=== PATIENT | female | born 1985 | race Two or more races ===

== ENCOUNTER → 2019-10-15 | Outpatient (CLI) | payer OTHER | END | disposition home or self-care (01) | LOC: PRENATAL 10:53 | DX: O35.3XX0 Maternal care for (suspected) damage to fetus from viral disease in mother, not applicable or unspecified (principal); O28.1 Abnormal biochemical finding on antenatal screening of mother ==

== ENCOUNTER → 2019-12-24 | Outpatient (CLI) | payer OTHER | END | disposition home or self-care (01) | LOC: PRENATAL 11:00 | DX: O26.843 Uterine size-date discrepancy, third trimester (principal); O24.410 Gestational diabetes mellitus in pregnancy, diet controlled; O34.211 Maternal care for low transverse scar from previous cesarean delivery; O28.1 Abnormal biochemical finding on antenatal screening of mother; O36.60X1 Maternal care for excessive fetal growth, unspecified trimester, fetus 1; O40 Polyhydramnios; O36.8131 Decreased fetal movements, third trimester, fetus 1; O09.93 Supervision of high risk pregnancy, unspecified, third trimester; O09.213 Supervision of pregnancy with history of pre-term labor, third trimester ==

== ENCOUNTER 2020-01-07 17:02 | Inpatient (IN) | payer OTHER ==
[~2020-01-07] VITALS: Ht 160 cm; Wt 66.7 kg
[2020-01-08] MEDS ORDERED: NIFEDIPINE ER30 M1 PO (08:17)
== END 2020-01-17 15:26 | disposition home or self-care (01) | DRG 832 ==
LOC: LDR 17:02 → OB/GYN 01-08 10:54
PROVIDERS: ADMIT Obstetrics & Gynecology
PROC: 4A1HXCZ Monitoring of Products of Conception, Cardiac Rate, External Approach (ICD-10-PCS; 2020-01-07)
PROC: B54DZZZ Ultrasonography of Bilateral Lower Extremity Veins (ICD-10-PCS; principal; 2020-01-16)
DX: O22.33 Deep phlebothrombosis in pregnancy, third trimester (principal); I82.4Z1 Acute embolism and thrombosis of unspecified deep veins of right distal lower extremity; Z3A.35 35 weeks gestation of pregnancy

== ENCOUNTER 2020-01-19 00:31 | Inpatient (IN) | payer OTHER ==
[~2020-01-19] VITALS: Ht 160 cm; Wt 3.6 kg
[~2020-01-19 00:31] MED LIST: NIFEDIPINE ER30 M1 PO
[2020-01-19] MEDS ORDERED: PRENATAL TABLE1 EAC1 PO (01:48)
[2020-01-19] MEDS ORDERED: LOVENOX80 MG/0.8 SUBCUTANEO (01:49)
[2020-01-22] MEDS ORDERED: LOVENOX80 MG/0.8 SUBCUTANEO (10:00)
[2020-01-22] MEDS ORDERED: Ferro-Plex CAPLET PO (10:01)
[2020-01-22] MEDS ORDERED: CODE1TAB37 PO (10:01)
== END 2020-01-22 12:04 | disposition home or self-care (01) | DRG 783 ==
LOC: OBS/DEL 00:31 → LDR 00:54 → OB/GYN 00:54
PROVIDERS: ADMIT Obstetrics & Gynecology; ATTEND Obstetrics & Gynecology
PROC: 0UL77ZZ Occlusion of Bilateral Fallopian Tubes, Via Natural or Artificial Opening (ICD-10-PCS; 2020-01-19)
PROC: 4A1HXCZ Monitoring of Products of Conception, Cardiac Rate, External Approach (ICD-10-PCS; 2020-01-19)
PROC: 10D00Z1 Extraction of Products of Conception, Low, Open Approach (ICD-10-PCS; principal; 2020-01-19 09:15)
DX: O87.1 Deep phlebothrombosis in the puerperium (principal); O60.14X0 Preterm labor third trimester with preterm delivery third trimester, not applicable or unspecified; I82.4Z1 Acute embolism and thrombosis of unspecified deep veins of right distal lower extremity; O99.03 Anemia complicating the puerperium; Z37.0 Single live birth; Z30.2 Encounter for sterilization; Z3A.36 36 weeks gestation of pregnancy

== ENCOUNTER 2020-02-13 08:44 | Outpatient (CLI) | payer OTHER ==
[~2020-02-13 08:44] MED LIST changes: +CODE1TAB37 PO; +Ferro-Plex CAPLET PO; +LOVENOX80 MG/0.8 SUBCUTANEO; +PRENATAL TABLE1 EAC1 PO
== END 2020-02-13 08:50 | disposition home or self-care (01) ==
LOC: LAB 08:44
PROVIDERS: ATTEND Obstetrics & Gynecology
DX: I10 Essential (primary) hypertension (principal); D50.8 Other iron deficiency anemias; D68.8 Other specified coagulation defects

== ENCOUNTER 2020-02-13 09:11 | Outpatient (CLI) | payer OTHER | END 2020-02-13 09:20 | disposition home or self-care (01) | LOC: NUCLEAR 09:11 | PROVIDERS: ATTEND Obstetrics & Gynecology | DX: I82.403 Acute embolism and thrombosis of unspecified deep veins of lower extremity, bilateral (principal) ==

== ENCOUNTER 2020-04-22 10:42 | Outpatient (CLI) | payer OTHER | END 2020-04-22 10:50 | disposition home or self-care (01) | LOC: NUCLEAR 10:42 | PROVIDERS: ATTEND Internal Medicine Hematology & Oncology | DX: I87.001 Postthrombotic syndrome without complications of right lower extremity (principal); I87.2 Venous insufficiency (chronic) (peripheral) ==

== ENCOUNTER 2021-10-05 08:59 | Emergency (ER) | payer OTHER ==
[~2021-10-05] VITALS: Ht 160 cm; Wt 49.9 kg
[2021-10-05] MEDS ORDERED: ATARAX25 MG PO (14:02)
[2021-10-05] MEDS ORDERED: MEDROLPACK PO (14:02)
== END 2021-10-05 14:21 | disposition home or self-care (01) ==
LOC: ER 08:59
DX: T78.40XA Allergy, unspecified, initial encounter (principal)

== ENCOUNTER 2023-03-15 09:41 | Day surgery (SDC) | payer OTHER ==
[~2023-03-15 09:41] MED LIST changes: +ATARAX25 MG PO; +MEDROLPACK PO
[2023-03-15] MEDS ORDERED: KETO10TA2 PO (12:52)
[2023-03-15] MEDS ORDERED: TYLENOL ARTHRI650 MG PO (12:52)
[2023-03-15] MEDS ORDERED: MIRALAX17 GM PO (12:52)
[2023-03-15] MEDS ORDERED: TRAMADOL HCL50 MG PO (12:52)
== END 2023-03-15 19:45 | disposition home or self-care (01) ==
LOC: CIR.AMB 09:41
PROVIDERS: ATTEND Surgery
DX: K42.0 Umbilical hernia with obstruction, without gangrene (principal); K43.9 Ventral hernia without obstruction or gangrene; Z20.822 Contact with and (suspected) exposure to COVID-19; Z91.040 Latex allergy status
CPT/HCPCS: 49594; C1781

== ENCOUNTER 2023-03-18 15:50 | Inpatient (IN) | payer OTHER ==
[~2023-03-18] VITALS: Ht 160 cm; Wt 54.9 kg
[~2023-03-18 15:50] MED LIST changes: +KETO10TA2 PO; +MIRALAX17 GM PO; +TRAMADOL HCL50 MG PO; +TYLENOL ARTHRI650 MG PO
== END 2023-03-21 14:56 | disposition home or self-care (01) | DRG 920 ==
LOC: ER 15:50 → MEDJ 22:42
PROVIDERS: ADMIT Specialist; ATTEND Specialist
PROC: BW21ZZZ Computerized Tomography (CT Scan) of Abdomen and Pelvis (ICD-10-PCS; principal; 2023-03-18)
DX: L76.34 Postprocedural seroma of skin and subcutaneous tissue following other procedure (principal); R65.10 Systemic inflammatory response syndrome (SIRS) of non-infectious origin without acute organ dysfunction; D72.828 Other elevated white blood cell count; K66.8 Other specified disorders of peritoneum; R50.82 Postprocedural fever; D64.89 Other specified anemias; R19.7 Diarrhea, unspecified

== ENCOUNTER 2023-03-26 17:15 | Inpatient (IN) | payer OTHER ==
[~2023-03-26] VITALS: Ht 160 cm; Wt 54.4 kg
[2023-03-26] MEDS ORDERED: FERROUS SULFAT325 MG PO (18:46)
[2023-03-26] MEDS ORDERED: MULTIPLE VITAM1 EAC2 PO (18:46)
--- NOTE | 2023-03-26 18:49 | NUR ---
PTE ALERTA Y ORIENTADA X3 PTE FUE OPERADA POR HERNIA UMBILICAL. REFIERE TENER INFECCION, ES PTE DE DR. COREY BROWN.
--- NOTE | 2023-03-26 21:33 | NUR ---
PACIENTE ADMITIDA. REALIZA ORDENES DE ADMISION
[2023-03-31] MEDS ORDERED: ACIDOPHILUS1 EAC3 PO (11:22)
[2023-03-31] MEDS ORDERED: MIRALAX17 GM PO (11:22)
[2023-03-31] MEDS ORDERED: CIPRO500 MG PO (11:22)
[2023-03-31] MEDS ORDERED: TRAMADOL HCL50 MG PO (11:22)
== END 2023-03-31 12:41 | disposition home or self-care (01) | DRG 907 ==
LOC: ER 17:15 → SURG 19:56
PROVIDERS: Surgery; ADMIT Specialist; ATTEND Specialist
PROC: BW21YZZ Computerized Tomography (CT Scan) of Abdomen and Pelvis using Other Contrast (ICD-10-PCS; 2023-03-26)
PROC: 0DNW0ZZ Release Peritoneum, Open Approach (ICD-10-PCS; 2023-03-28)
PROC: 0W9G0ZZ Drainage of Peritoneal Cavity, Open Approach (ICD-10-PCS; 2023-03-28)
PROC: 0WPF0JZ Removal of Synthetic Substitute from Abdominal Wall, Open Approach (ICD-10-PCS; 2023-03-28)
PROC: 0WQF0ZZ Repair Abdominal Wall, Open Approach (ICD-10-PCS; 2023-03-28)
PROC: 0DJW4ZZ Inspection of Peritoneum, Percutaneous Endoscopic Approach (ICD-10-PCS; principal; 2023-03-28 13:00)
DX: T81 Complications of procedures, not elsewhere classified (principal); K65.1 Peritoneal abscess; L03.315 Cellulitis of perineum; K91.89 Other postprocedural complications and disorders of digestive system; K56.7 Ileus, unspecified; K66.0 Peritoneal adhesions (postprocedural) (postinfection); K42.9 Umbilical hernia without obstruction or gangrene; B96.5 Pseudomonas (aeruginosa) (mallei) (pseudomallei) as the cause of diseases classified elsewhere; B95.2 Enterococcus as the cause of diseases classified elsewhere; B96.6 Bacteroides fragilis [B. fragilis] as the cause of diseases classified elsewhere; B96.89 Other specified bacterial agents as the cause of diseases classified elsewhere; Z53.31 Laparoscopic surgical procedure converted to open procedure

== ENCOUNTER 2023-06-07 09:34 | Emergency (ER) | payer OTHER ==
[~2023-06-07] VITALS: Ht 160 cm; Wt 50.8 kg
[~2023-06-07 09:34] MED LIST changes: +ACIDOPHILUS1 EAC3 PO; +CIPRO500 MG PO; +FERROUS SULFAT325 MG PO; +MULTIPLE VITAM1 EAC2 PO
[2023-06-07 11:24] LABS: HEMATOCRIT 32.5 % (36.0-45.00); HEMOGLOBIN 10.7 g/dL (12.0-15.00); MEAN CORPUSCULAR HEMOGLOBIN 25.9 pg (27.00-32.0); MEAN CORPUSCULAR HGB CONC 32.8 g/dl (32.0-36.0); PLATELET COUNT 332 K/uL (150-450); RED BLOOD COUNT 4.12 M/uL (4.00-6.00); RED CELL DISTRIBUTION WIDTH 17.2 % (11.5-14.5)
== END 2023-06-07 12:27 | disposition home or self-care (01) ==
LOC: ER 09:34
DX: J06.9 Acute upper respiratory infection, unspecified (principal); Z20.822 Contact with and (suspected) exposure to COVID-19; Z91.040 Latex allergy status